=== PATIENT | male | born 1980 ===

== ENCOUNTER 2019-06-03 20:05 | Inpatient (IN) ==
[2019-06-03 22:00] LABS: Basophils # 0.1 K/mcL (0.0-0.2); Basophils % 1.1 %; Eosinophils # 0.2 K/mcL (0.0-0.6); Hemoglobin 15.6 g/dL (12.9-16.9); Immature Granulocytes % 0.3 % (0-4); Lymphocytes # 2.3 K/mcL (0.6-4.6); Lymphocytes % 25.6 %; Mean Corpuscular HGB Conc 33.9 g/dL (31.6-35.5); Mean Corpuscular Hemoglobin 27.8 pg (28.0-33.3); Mean Corpuscular Volume 81.9 fL (83.0-100.0); Mean Platelet Volume 8.9 fL (9.4-12.4); Monocytes # 0.8 K/mcL (0.0-1.3); Monocytes % 8.9 %; Neutrophils # 5.6 K/mcL (1.6-8.9); Platelet Count 323 K/mcL (140-400); Red Blood Count 5.62 M/mcL (4.19-5.50); Red Cell Distribution Width 14.6 % (11.5-14.5); Segmented Neutrophils % 62.1 %; White Blood Count 9.1 K/mcL (4.3-11.1)
[2019-06-03 22:16] LABS: BUN/Creatinine Ratio 16 (6-26); Blood Urea Nitrogen 17 mg/dL (6-20); Calcium 9.2 mg/dL (8.6-10.3); Carbon Dioxide 21 mEq/L (23-29); Chloride 105 mEq/L (98-107); Glucose 86 mg/dL (70-105); Osmolality,Calculated 283 (280-300); Potassium 4.2 mEq/L (3.5-5.1); Sodium 136 mEq/L (136-145); eGFR For African Americans > 60 (> 60); eGFR For Non-African Americans > 60 (> 60)
[2019-06-03] MEDS ORDERED: Piperacillin/Tazobactam 3.375 GM in 0.9 % Sodium Chloride Mini Bag 100 ML IVPB ONE (22:22)
[2019-06-03] MEDS ORDERED: Vancomycin 1,750 MG in 0.9 % Sodium Chloride 250 ML IVPB ONE (22:22)
[2019-06-03] MEDS ORDERED: Isovue-370 500 ML BOTTLE IVP ONE (22:48)
[2019-06-04] MEDS ORDERED: Ibuprofen 800 MG TABLET PO ONE (00:09)
[2019-06-04] MEDS ORDERED: Isovue-370 500 ML BOTTLE IVP ONE (02:22)
[2019-06-04] MEDS ORDERED: Naloxone 0.4 MG/ML INJ IVP PRN ×3 (03:02→21:14)
[2019-06-04] MEDS ORDERED: Nicotine 2 MG GUM BC PRN ×2 (03:02→21:14)
[2019-06-04] MEDS ORDERED: 0.9 % Sodium Chloride 1,000 ML IVC SCH (03:15)
[2019-06-04 04:03] LABS: INR 1.1; Prothrombin Time 12.3 Seconds (9.4-12.1)
[2019-06-04 04:14] LABS: Albumin 3.6 g/dL (3.5-5.7); Albumin/Globulin Ratio 0.8 (1.1-2.2); Bilirubin,Direct 0.1 mg/dL (0.0-0.2); Bilirubin,Indirect 0.5 mg/dL (0.0-1.0); Bilirubin,Total 0.6 mg/dL (0.3-1.0); Globulin 4.3 g/dL (2.4-3.5); Magnesium 1.9 mg/dL (1.6-2.6); Phosphorous 3.8 mg/dL (2.7-4.5); Total Protein 7.9 g/dL (6.4-8.9)
[2019-06-04 04:18] LABS: Alanine Aminotransferase 99 Units/L (7-52); Albumin 3.6 g/dL (3.5-5.7); Albumin/Globulin Ratio 0.9 (1.1-2.2); Alkaline Phosphatase 91 Units/L (34-104); Aspartate Amino Transferase 53 Units/L (13-39); BUN/Creatinine Ratio 16 (6-26); Bilirubin,Total 0.6 mg/dL (0.3-1.0); Blood Urea Nitrogen 16 mg/dL (6-20); Carbon Dioxide 22 mEq/L (23-29); Chloride 105 mEq/L (98-107); Globulin 4.2 g/dL (2.4-3.5); Glucose 102 mg/dL (70-105); Osmolality,Calculated 283 (280-300); Sodium 136 mEq/L (136-145); Total Protein 7.8 g/dL (6.4-8.9); eGFR For African Americans > 60 (> 60); eGFR For Non-African Americans > 60 (> 60)
[2019-06-04] MEDS ORDERED: Aspirin 81 MG TAB.CHEW PO ONE (04:32)
[2019-06-04 04:57] LABS: Basophils # 0.1 K/mcL (0.0-0.2); Basophils % 0.7 %; Eosinophils # 0.2 K/mcL (0.0-0.6); Eosinophils % 2.4 %; Immature Granulocytes % 0.5 % (0-4); Lymphocytes # 1.9 K/mcL (0.6-4.6); Lymphocytes % 22.3 %; Mean Corpuscular HGB Conc 33.1 g/dL (31.6-35.5); Mean Corpuscular Hemoglobin 27.6 pg (28.0-33.3); Mean Corpuscular Volume 83.3 fL (83.0-100.0); Mean Platelet Volume 9.5 fL (9.4-12.4); Monocytes # 0.8 K/mcL (0.0-1.3); Monocytes % 9.6 %; Neutrophils # 5.6 K/mcL (1.6-8.9); Platelet Count 317 K/mcL (140-400); Red Blood Count 5.04 M/mcL (4.19-5.50); Red Cell Distribution Width 14.6 % (11.5-14.5); Segmented Neutrophils % 64.5 %; White Blood Count 8.6 K/mcL (4.3-11.1)
[2019-06-04 05:05] LABS: Hemoglobin 13.9 g/dL (12.9-16.9)
[2019-06-04] MEDS ORDERED: *HR* Heparin 5,000 UNIT/ML VIAL IVP PRN ×2 (05:37)
[2019-06-04] MEDS ORDERED: *HR* Heparin 5,000 UNIT/ML VIAL IVP ONE (05:37)
[2019-06-04] MEDS ORDERED: Nitroglycerin 0.4 MG TAB.SUBL SL PRN ×2 (05:39→21:14)
[2019-06-04] MEDS ORDERED: Heparin 25,000 UNIT/250 ML D5W 25,000 UNIT/250 ML IV.SOLN IVC SCH (05:45)
[2019-06-04] MEDS ORDERED: *HR* Heparin 5,000 UNIT/ML VIAL SQ SCH (06:00)
[2019-06-04] MEDS ORDERED: MetroNIDAZOLE 500 MG/100 ML 500 MG/100 ML BAG IVPB SCH (08:00)
[2019-06-04] MEDS ORDERED: CEFTRIAXONE IN IS-OSM DEXTROSE 1 GM/50 ML PIGGYBACK IV SCH (09:00)
[2019-06-04] MEDS ORDERED: Nicotine 14 MG PATCH.TD24 TD SCH (09:00)
[2019-06-04] MEDS ORDERED: cefTRIAXone 1,000 MG in Water for inj. (sterile) 10 ML IVP SCH (09:00)
[2019-06-04] MEDS ORDERED: *HR* Enoxaparin 40 MG/0.4 ML SYRINGE SQ SCH (11:30)
[2019-06-04 12:18] LABS: Amphetamine Screen,Urine Positive ng/mL (Cutoff=1000); Barbiturate Screen,Urine Negative ng/mL (Cutoff=200); Benzodiazepines Screen,Urine Negative ng/mL (Cutoff=200); Cannabinoid Screen,Urine Negative ng/mL (Cutoff = 50); Cocaine Screen,Urine Negative ng/mL (Cutoff= 300); Opiate Screen,Urine Negative ng/mL (Cutoff=300); Phencyclidine Screen,Urine Negative ng/mL (Cutoff=25)
[2019-06-04 17:13] LABS: Hemoglobin 14.6 g/dL (12.9-16.9); Mean Corpuscular Hemoglobin 27.1 pg (28.0-33.3); Mean Corpuscular Volume 79.9 fL (83.0-100.0); Mean Platelet Volume 9.1 fL (9.4-12.4); Platelet Count 301 K/mcL (140-400); Red Blood Count 5.38 M/mcL (4.19-5.50); Red Cell Distribution Width 14.6 % (11.5-14.5); White Blood Count 7.2 K/mcL (4.3-11.1)
[2019-06-04] MEDS ORDERED: *HR* LORazepam 2 MG/ML VIAL IVP ONE ×2 (17:49)
[2019-06-04] MEDS ORDERED: *HR* Midazolam HCl 2 MG/2 ML VIAL ONE (17:55)
[2019-06-04] MEDS ORDERED: *HR* LORazepam 2 MG/ML VIAL ONE (17:55)
[2019-06-04] MEDS ORDERED: *HR* Propofol 200 MG/20 ML VIAL IVP ONE (17:55)
[2019-06-04] MEDS ORDERED: *HR* FentaNYL (PF) 100 MCG/2 ML VIAL ONE (17:55)
[2019-06-04] MEDS ORDERED: Lidocaine -MPF 2% 2 ML VIAL ONE (17:55)
[2019-06-04] MEDS ORDERED: cloNIDine HCl 0.1 MG TABLET ONE (18:34)
[2019-06-04] MEDS ORDERED: Famotidine 20 MG/2 ML VIAL ONE (18:36)
[2019-06-04] MEDS ORDERED: Pregabalin 75 MG CAPSULE ONE (18:38)
[2019-06-04] MEDS ORDERED: Ondansetron 4 MG/2 ML VIAL IVP ONE (19:25)
[2019-06-04] MEDS ORDERED: Dexamethasone 4 MG/ML VIAL ONE (19:27)
[2019-06-04] MEDS ORDERED: Ondansetron 4 MG/2 ML VIAL ONE (19:27)
[2019-06-04] MEDS: *HR* HYDROmorphone (PF) 1 MG/ML SYRINGE IVP PRN ×2 (20:23→20:28)
[2019-06-05] MEDS ORDERED: Nicotine 14 MG PATCH.TD24 TD SCH (09:00)
[2019-06-05] MEDS: *HR* Enoxaparin 40 MG/0.4 ML SYRINGE SQ SCH (09:49)
[2019-06-05] MEDS ORDERED: Nicotine 2 MG GUM BC PRN (10:48)
[2019-06-05] MEDS: Ketorolac 30 MG/ML VIAL IVP PRN (12:16)
[2019-06-05] MEDS ORDERED: Lidocaine Viscous Oral Soln 15 ML SOLUTION MM PRN (13:10)
[2019-06-05] MEDS ORDERED: 0.9 % Sodium Chloride 500 ML IVC ONE (13:10)
[2019-06-05] MEDS: *HR* FentaNYL (PF) 100 MCG/2 ML VIAL IVP PRN ×4 (13:40→14:00)
[2019-06-05] MEDS: *HR* Midazolam HCl 5 MG/5 ML VIAL IVP PRN ×5 (13:40→14:05)
[2019-06-06 00:25] LABS: Hematocrit 41.8 % (37.5-50.1); Hemoglobin 13.8 g/dL (12.9-16.9); Mean Corpuscular Hemoglobin 27.6 pg (28.0-33.3); Mean Corpuscular Volume 83.6 fL (83.0-100.0); Mean Platelet Volume 9.1 fL (9.4-12.4); Platelet Count 289 K/mcL (140-400); Red Cell Distribution Width 14.6 % (11.5-14.5); White Blood Count 8.4 K/mcL (4.3-11.1)
[2019-06-06] MEDS ORDERED: *HR* LORazepam 2 MG/ML VIAL IVP ONE (00:30)
[2019-06-06 00:41] LABS: Rheumatoid Factor < 10 IU/mL (Less than 14)
[2019-06-06 00:42] LABS: BUN/Creatinine Ratio 16 (6-26); Blood Urea Nitrogen 16 mg/dL (6-20); Calcium 8.5 mg/dL (8.6-10.3); Carbon Dioxide 22 mEq/L (23-29); Chloride 106 mEq/L (98-107); Glucose 117 mg/dL (70-105); Magnesium 1.8 mg/dL (1.6-2.6); Osmolality,Calculated 290 (280-300); Potassium 3.8 mEq/L (3.5-5.1); Sodium 139 mEq/L (136-145); eGFR For African Americans > 60 (> 60); eGFR For Non-African Americans > 60 (> 60)
[2019-06-06 03:08] LABS: Hepatitis B Surface Antibody > 850.00 mIU/mL
[2019-06-06 03:18] LABS: Hepatitis B Surface Antigen Nonreactive (Nonreactive)
[2019-06-06] MEDS: Ketorolac 30 MG/ML VIAL IVP PRN ×2 (03:59→21:38)
[2019-06-06 04:59] LABS: Basophils # 0.1 K/mcL (0.0-0.2); Basophils % 0.8 %; Eosinophils # 0.2 K/mcL (0.0-0.6); Eosinophils % 2.1 %; Hematocrit 40.7 % (37.5-50.1); Hemoglobin 13.6 g/dL (12.9-16.9); Immature Granulocytes % 0.4 % (0-4); Lymphocytes # 2.3 K/mcL (0.6-4.6); Lymphocytes % 30.6 %; Mean Corpuscular HGB Conc 33.4 g/dL (31.6-35.5); Mean Corpuscular Hemoglobin 27.3 pg (28.0-33.3); Mean Corpuscular Volume 81.7 fL (83.0-100.0); Mean Platelet Volume 9.4 fL (9.4-12.4); Monocytes # 0.8 K/mcL (0.0-1.3); Monocytes % 9.9 %; Neutrophils # 4.3 K/mcL (1.6-8.9); Platelet Count 305 K/mcL (140-400); Red Blood Count 4.98 M/mcL (4.19-5.50); Red Cell Distribution Width 14.6 % (11.5-14.5); Segmented Neutrophils % 56.2 %; White Blood Count 7.6 K/mcL (4.3-11.1)
[2019-06-06 05:09] LABS: BUN/Creatinine Ratio 16 (6-26); Blood Urea Nitrogen 16 mg/dL (6-20); Calcium 8.2 mg/dL (8.6-10.3); Carbon Dioxide 23 mEq/L (23-29); Chloride 107 mEq/L (98-107); Glucose 114 mg/dL (70-105); Osmolality,Calculated 292 (280-300); Potassium 3.8 mEq/L (3.5-5.1); Sodium 140 mEq/L (136-145); eGFR For African Americans > 60 (> 60); eGFR For Non-African Americans > 60 (> 60)
[2019-06-06 05:39] LABS: Hepatitis C Virus Antibody Reactive (Nonreactive)
[2019-06-06 10:13] LABS: HIV-1&2 Antibody & p24 Ag Nonreactive (Nonreactive)
[2019-06-06] MEDS ORDERED: Lidocaine 2% Syringe 100 MG/5 ML IV ONE (11:29)
[2019-06-06] MEDS ORDERED: *HR* Propofol 200 MG/20 ML VIAL IVP ONE (11:29)
[2019-06-06] MEDS ORDERED: Ondansetron 4 MG/2 ML VIAL IVP ONE (11:29)
[2019-06-06] MEDS ORDERED: Lidocaine -MPF 4% 5 ML AMPUL INFILT ONE (11:29)
[2019-06-06] MEDS ORDERED: *HR* Rocuronium Bromide 50 MG/5 ML VIAL IVC ONE (11:29)
[2019-06-06] MEDS ORDERED: Aminoglycoside Consult 1 EACH MC ONE (11:29)
[2019-06-06] MEDS ORDERED: 0.9 % Sodium Chloride 10 ML PF VIAL IVP ONE (11:29)
[2019-06-06] MEDS ORDERED: *HR* Succinylcholine 200 MG/10 ML VIAL IVP ONE (11:29)
[2019-06-06] MEDS ORDERED: *HR* FentaNYL (PF) 100 MCG/2 ML VIAL ONE (11:35)
[2019-06-06] MEDS ORDERED: *HR* Midazolam HCl 2 MG/2 ML VIAL ONE (11:35)
[2019-06-06] MEDS: *HR* Enoxaparin 40 MG/0.4 ML SYRINGE SQ SCH (13:59)
[2019-06-07] MEDS ORDERED: *HR* HYDROmorphone 2 MG TABLET PO ONE (04:29)
[2019-06-07] MEDS: *HR* Enoxaparin 40 MG/0.4 ML SYRINGE SQ SCH (09:50)
[2019-06-07] MEDS: Ketorolac 30 MG/ML VIAL IVP PRN (09:52)
[2019-06-07 10:58] VITALS: BP 165/92
== END 2019-06-07 11:30 | disposition left against medical advice (07) | DRG 580 ==
LOC: EMEROOARM 20:05 → 3ANU 20:05 → SUATTDRO 06-04 00:37 → 3ANU 06-04 00:55 → SUATTDRO 06-05 15:16
PROVIDERS: ADMIT Internal Medicine; ATTEND Internal Medicine